=== PATIENT | male | born 1965 | race Caucasian/White ===

== ENCOUNTER 2017-11-25 17:39 | Observation (INO) | payer OTHER, MEDICARE ==
[2017-11-25] MEDS ORDERED: SODIUM CHLORIDE 0.9% 1,000 ML IV STA (18:24)
--- NOTE | 2017-11-25 18:30 | ED ---
General Adult HPI - General Chief complaint: Chest Pain Stated complaint: anxiety, chest pain Time Seen by Provider: 11/25/17 18:04 Source: patient, RN notes reviewed Mode of arrival: ambulatory Limitations: no limitations - History of Present Illness Initial comments: Chief complaint and history of present illness this is a 52-year-old male here with a complaint of mild nausea but no vomiting is associated with sweats. Patient also reports he felt rather hot. He does state that he was trying to learn a lot of information about a new insulin pump which she is having placed also he was in a warm room. He states he thinks he may become overly anxious. Normally when he feels this way's blood sugar is low, it was checked was 172. For this he gave himself one half units of insulin. He has not had anything to eat since then he did take a Tums which helped a slight bit. Patient reports this all lasted about half an hour currently discomfort free. He does report having had epigastric discomfort in the same area on again off again for 1 year but is never been diaphoretic before. There is no radiation of pain in the arm neck or back. - Related Data Home Medications Medication Instructions Recorded Confirmed Aspirin EC [Ecotrin Low Dose] 81 mg PO DAILY 11/25/17 11/25/17 Cetirizine HCl [Zyrtec] 10 mg PO DAILY 11/25/17 11/25/17 Enalapril Maleate [Vasotec] 2.5 mg PO DAILY 11/25/17 11/25/17 INSULIN LISPRO (For Pump) [humaLOG 0.01 units SQ-PUMP CONTINUOUS 11/25/17 (For Pump)] Simvastatin [Zocor] 10 mg PO HS 11/25/17 11/25/17 Allergies Allergy/AdvReac Type Severity Reaction Status Date / Time No Known Allergies Allergy Verified 11/25/17 19:12 Review of Systems ROS Statement: Those systems with pertinent positive or pertinent negative responses have been documented in the HPI. Review of systems. At this time no visual acuity changes, he has had bad eyesight and one IV with previous surgeries secondary to diabetes. Denies any neck pain denies shortness of breath currently no chest pain or epigastric pain which occurred approximately 3 hours ago and lasted half an hour. At that time he was diaphoretic with mild nausea but no vomiting. He states he felt better after he went around to the cooler air. He had been in a stuffy room learning about a new insulin pump. He is otherwise denying any abdominal pain at this time no nausea no vomiting no neuro deficits. All systems are reviewed. 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 Also hypertension and hyperlipidemia. Surgeries tonsils and adenoids. Family history mother had breast cancer. Patient denies ALLERGIES. Nonsmoker. Drink alcohol occasionally socially. ROS Other: All systems not noted in ROS Statement are negative. Past Medical History Past Medical History: Chest Pain / Angina, Diabetes Mellitus, Hyperlipidemia, Hypertension History of Any Multi-Drug Resistant Organisms: None Reported Past Surgical History: No Surgical Hx Reported Past Psychological History: No Psychological Hx Reported Smoking Status: Never smoker Past Alcohol Use History: None Reported, Occasional Past Drug Use History: None Reported General Exam - General Exam Comments Initial Comments: General: The patient is awake and alert, in no distress, and does not appear acutely ill. Here because he had discomfort to the epigastric area with diaphoresis that lasted a short while. Vital signs show temperature 98.7 pulse 117 respiratory rate 20 pulse ox 90% room air blood pressure 166/95. Patient reports his heart rate normally high in the low 100s. He states on 2 previous stress tests takes only several seconds to a few minutes to get his heart rate up to the maximum level. Eye: Pupils are equal, round and reactive to light, extra-ocular movements are intact ; there is normal conjunctiva bilaterally. No signs of icterus. Patient states due to diabetes and having had surgeries on 1 eye his vision is poor. But no change lately. Ears, nose, mouth and throat: There are moist mucous membranes and no oral lesions. Neck: The neck is supple, there is no tenderness, no JVD, no anterior cervical lymphadenopathy. Cardiovascular: Tachycardic heart rate, 117.. No murmur, rub or gallop is appreciated. Respiratory: Lungs are clear to auscultation, respirations are non-labored, breath sounds are equal. No wheezes, stridor, rales, or rhonchi. Gastrointestinal: Soft, non-distended, non-tender abdomen without masses or organomegaly noted. There is no rebound or guarding present. No CVA tenderness. Bowel sounds are unremarkable. Back: There is no tenderness to palpation in the midline. Musculoskeletal: Normal ROM, no tenderness, There is no pedal edema. There is no calf tenderness or swelling. Sensation intact. Pulses equal bilaterally 2+. Neurological: CN II-XII intact, There are no obvious motor or sensory deficits. Coordination appears grossly intact. Speech is normal. Skin: Skin is warm and dry and no rashes or lesions are noted. Psychiatric: Cooperative, appropriate mood & affect patient does think he may have had an anxiety attack associated with the warm temperature in the room. Limitations: no limitations Course Vital Signs 11/25/17 11/25/17 11/25/17 17:58 19:06 20:06 Temperature 98.7 F Pulse Rate 117 H 108 H 110 H Respiratory 20 14 16 Rate Blood Pressure 166/95 156/67 145/67 O2 Sat by Pulse 98 100 100 Oximetry EKG Findings - EKG Comments: EKG Findings:: EKG was done and reviewed at 1805 showing sinus tachycardia rate 117. No acute ST elevation no ectopy no ischemic changes. LA interval is 152 QRS [address] Hsieh no old EKG available to compare to. Medical Decision Making - Medical Decision Making Medical decision making; this is a 52-year-old male reports she had some epigastric discomfort with some diaphoresis. He thought he may be having an anxiety attack continues in a warmer room when he went outside he felt better. He was mildly nauseated. The patient was at that time getting a new insulin pump placed and he was learning about it. He checked his sugar was 170. At that time he gave himself 1.5 units. There is no radiation of pain. Labs show white count of 10 hemoglobin 16 hematocrit of 45 amylase lipase normal limits. Potassium 4.6 with a BUN 14 creatinine 0.93 GFR greater than 90. Glucose is 229. D-dimer normal at less than 0.12. CK-MB and troponin normal. Chest x-ray was done AP and lateral view and reviewed by radiologist; his impression is heart and mediastinum are normal. Lungs are clear. Diaphragm is normal. There are chest leads. Bony thorax is intact. Impression normal chest. As read by Dr. Mujica Patient reports she still have mild discomfort in the left chest area left upper quadrant. Patient will have an H. pylori test done. I discussed the case Dr. Garrett on-call hospitalist. Patient admitted to his service. The patient will be taken off his insulin pump and placed on regular insulin to scale. With repeat cardiac enzymes. - Lab Data Result diagrams: 11/25/17 18:35 11/25/17 18:35 Lab Results 11/25/17 11/25/17 11/25/17 Range/Units 18:35 18:35 18:35 WBC 10.1 (3.8-10.6) k/uL RBC 4.43 (4.30-5.90) m/uL Hgb 16.3 (13.0-17.5) gm/dL Hct 46.5 (39.0-53.0) % MCV 105.0 H (80.0-100.0) fL MCH 36.8 H (25.0-35.0) pg MCHC 35.0 (31.0-37.0) g/dL RDW 13.4 (11.5-15.5) % Plt Count 261 (150-450) k/uL Neutrophils % 85 % Lymphocytes % 7 % Monocytes % 5 % Eosinophils % 1 % Basophils % 0 % Neutrophils # 8.6 H (1.3-7.7) k/uL Lymphocytes # 0.7 L (1.0-4.8) k/uL Monocytes # 0.5 (0-1.0) k/uL Eosinophils # 0.1 (0-0.7) k/uL Basophils # 0.0 (0-0.2) k/uL Macrocytosis Slight PT (9.0-12.0) sec INR (<1.2) APTT (22.0-30.0) sec D-Dimer (<0.60) mg/L FEU Sodium 137 (137-145) mmol/L Potassium 4.6 (3.5-5.1) mmol/L Chloride 98 (98-107) mmol/L Carbon Dioxide 22 (22-30) mmol/L Anion Gap 17 mmol/L BUN 14 (9-20) mg/dL Creatinine 0.93 (0.66-1.25) mg/dL Est GFR (CKD-EPI)AfAm >90 (>60 ml/min/1.73 sqM) Est GFR (CKD-EPI)NonAf >90 (>60 ml/min/1.73 sqM) Glucose 229 H (74-99) mg/dL Calcium 9.7 (8.4-10.2) mg/dL Magnesium 1.7 (1.6-2.3) mg/dL Total Bilirubin 0.8 (0.2-1.3) mg/dL AST 49 (17-59) U/L ALT 46 (21-72) U/L Alkaline Phosphatase 70 (38-126) U/L Total Creatine Kinase 75 (55-170) U/L CK-MB (CK-2) 0.4 (0.0-2.4) ng/mL CK-MB (CK-2) Rel Index 0.5 Troponin I <0.012 (0.000-0.034) ng/mL Total Protein 8.0 (6.3-8.2) g/dL Albumin 4.8 (3.5-5.0) g/dL Amylase 110 (30-110) U/L Lipase 26 (23-300) U/L 11/25/17 Range/Units 18:35 WBC (3.8-10.6) k/uL RBC (4.30-5.90) m/uL Hgb (13.0-17.5) gm/dL Hct (39.0-53.0) % MCV (80.0-100.0) fL MCH (25.0-35.0) pg MCHC (31.0-37.0) g/dL RDW (11.5-15.5) % Plt Count (150-450) k/uL Neutrophils % % Lymphocytes % % Monocytes % % Eosinophils % % Basophils % % Neutrophils # (1.3-7.7) k/uL Lymphocytes # (1.0-4.8) k/uL Monocytes # (0-1.0) k/uL Eosinophils # (0-0.7) k/uL Basophils # (0-0.2) k/uL Macrocytosis PT 9.5 (9.0-12.0) sec INR 1.0 (<1.2) APTT 19.8 L (22.0-30.0) sec D-Dimer <0.17 (<0.60) mg/L FEU Sodium (137-145) mmol/L Potassium (3.5-5.1) mmol/L Chloride (98-107) mmol/L Carbon Dioxide (22-30) mmol/L Anion Gap mmol/L BUN (9-20) mg/dL Creatinine (0.66-1.25) mg/dL Est GFR (CKD-EPI)AfAm (>60 ml/min/1.73 sqM) Est GFR (CKD-EPI)NonAf (>60 ml/min/1.73 sqM) Glucose (74-99) mg/dL Calcium (8.4-10.2) mg/dL Magnesium (1.6-2.3) mg/dL Total Bilirubin (0.2-1.3) mg/dL AST (17-59) U/L ALT (21-72) U/L Alkaline Phosphatase (38-126) U/L Total Creatine Kinase (55-170) U/L CK-MB (CK-2) (0.0-2.4) ng/mL CK-MB (CK-2) Rel Index Troponin I (0.000-0.034) ng/mL Total Protein (6.3-8.2) g/dL Albumin (3.5-5.0) g/dL Amylase (30-110) U/L Lipase (23-300) U/L Disposition Clinical Impression: Chest pain Disposition: ADMITTED IP TO THIS HOSP Condition: Fair Instructions: Chest Pain (ED) Is patient prescribed a controlled substance at d/c from ED?: No Referrals: Frankie Wilder MD [Primary Care Provider] - 1-2 days
[2017-11-25 18:49] LABS: Basophils % (A) 0 %; Eosinophils # (A) 0.1 k/uL (0-0.7); Eosinophils % (A) 1 %; HCT 46.5 % (39.0-53.0); HGB 16.3 gm/dL (13.0-17.5); Lymphocytes # (A) 0.7 k/uL (1.0-4.8); Lymphocytes % (A) 7 %; MCH 36.8 pg (25.0-35.0); Macrocytosis Slight; Mean Platelet Volume 6.9; Monocytes # (A) 0.5 k/uL (0-1.0); Monocytes % (A) 5 %; Neutrophils # (A) 8.6 k/uL (1.3-7.7); Neutrophils % (A) 85 %; Platelet Count 261 k/uL (150-450); RBC 4.43 m/uL (4.30-5.90); RDW 13.4 % (11.5-15.5); WBC 10.1 k/uL (3.8-10.6)
[2017-11-25 18:58] LABS: ALT 46 U/L (21-72); AST 49 U/L (17-59); Albumin 4.8 g/dL (3.5-5.0); Alkaline Phosphatase 70 U/L (38-126); Amylase 110 U/L (30-110); Anion Gap 17 mmol/L; Blood Urea Nitrogen 14 mg/dL (9-20); Calcium 9.7 mg/dL (8.4-10.2); Carbon Dioxide 22 mmol/L (22-30); Chloride 98 mmol/L (98-107); Glucose 229 mg/dL (74-99); Lipase 26 U/L (23-300); Magnesium 1.7 mg/dL (1.6-2.3); Potassium 4.6 mmol/L (3.5-5.1); Sodium 137 mmol/L (137-145); Total Bilirubin 0.8 mg/dL (0.2-1.3)
[2017-11-25 19:04] LABS: Creatine Kinase 75 U/L (55-170)
[2017-11-25 19:09] LABS: D-Dimer <0.17 mg/L FEU (<0.60); Prothrombin Time 9.5 sec (9.0-12.0)
[2017-11-25 19:17] LABS: Creatine Kinase MB 0.4 ng/mL (0.0-2.4); Troponin I <0.012 ng/mL (0.000-0.034)
[2017-11-25 19:30] LABS: Partial Thromboplastin Time 19.8 sec (22.0-30.0)
--- NOTE | 2017-11-25 19:50 | XR ---
EXAMINATION TYPE: XR chest 2V DATE OF EXAM: 11/25/2017 COMPARISON: NONE HISTORY: Chest pain TECHNIQUE: Frontal and lateral views of the chest are obtained. FINDINGS: Heart and mediastinum are normal. Lungs are clear. Diaphragm is normal. There are chest le ads. Bony thorax is intact. IMPRESSION: Normal chest.
[2017-11-25 20:27] VITALS: RESP 16
[2017-11-25] MEDS ORDERED: NALOXONE 0.4 MG/ML 1 ML VIAL IV PRN (21:14)
[2017-11-25] MEDS ORDERED: ACETAMINOPHEN TAB 325 MG TAB PO PRN (21:14)
[2017-11-25] MEDS ORDERED: ONDANSETRON 4 MG/2 ML VIAL IVP PRN (21:14)
[2017-11-25] MEDS: SODIUM CHLORIDE 0.9% 1,000 ML IV SCH (21:27)
[2017-11-25] MEDS ORDERED: ASPIRIN 325 MG TAB PO STA (22:44)
[2017-11-25] MEDS ORDERED: INSULIN LISPRO (For Pump) 100 UNIT/ML VIAL SQ-PUMP SCH (22:45)
[2017-11-25 22:49] LABS: Glucose,Whole Blood 227 mg/dL (75-99)
[2017-11-25] MEDS: INSULIN ASPART 100 UNIT/ML 1 ML 10 ML VIAL SQ SCH (22:54)
[2017-11-25] MEDS ORDERED: LISINOPRIL 5 MG TAB PO SCH (23:22)
[2017-11-25] MEDS ORDERED: ATORVASTATIN 10 MG TAB PO SCH (23:30)
[2017-11-25] MEDS ORDERED: LORATADINE 10 MG TAB PO SCH (23:30)
[2017-11-26 00:37] LABS: Creatine Kinase 75 U/L (55-170)
[2017-11-26] MEDS ORDERED: MAG HYDROX/AL HYDROX/SIMETH 30 ML, HYOSCYAMINE ELIXIR 10 ML, CIMETIDINE HCL 300 MG, LID... PO ONE ×4 (00:44)
[2017-11-26] MEDS ORDERED: ZOLPIDEM 5 MG TAB PO PRN (00:46)
--- NOTE | 2017-11-26 00:49 | P.HPIM ---
History of Present Illness H&P Date: 11/26/17 Chief Complaint: Epigastric pain The patient is a 52-year-old male with a past with a history of type 1 diabetes with a history of peripheral neuropathy and diabetic retinopathy who is currently on insulin pump, the patient is apparently followed by Dr. Esteban endocrinology And reports that his sugars are usually pretty stable over the last known A1c at 6.5 approximately. Apparently the patient had episode of epigastric discomfort described as mild to moderate with some associated nausea diaphoresis and shortness of breath with associated symptoms of bloating, belching and heartburn. The patient reports that his symptoms began at rest while he was in class receiving instruction about his new insulin pump, the patient thinks that he may have become anxious and had initially reported some chest discomfort in the ER but is currently denying any such symptoms. Monitor symptoms of diaphoresis started the patient initially thought that he was having a hypoglycemic episode however when his blood sugar was checked and was approximately 172 he subsequently gave himself supplemental insulin, the patient reported his symptoms lasted approximately half an hour. He had also reported intermittent episodes of epigastric discomfort previously however this time around the diaphoresis was new. The patient reports to having a stress test approximately 2 years ago which was reportedly normal In the ER he had a EKG showing sinus tachycardia with a rate of 117, with no evidence of disc acute ischemic changes. Chest x-ray was normal, his cardiac markers are also normal. He was recommended for admission for possible chest pain rule out ACS Review of Systems All other 12 point review of systems negative except for HPI Past Medical History Past Medical History: Chest Pain / Angina, Diabetes Mellitus, Hyperlipidemia, Hypertension Additional Past Medical History / Comment(s): insulin pump, "indigestion", arthritis, back pain, in past when blood sugar dipped in the 30's he had seizure , past detatched retina lt eye(sx) History of Any Multi-Drug Resistant Organisms: None Reported Past Surgical History: Tonsillectomy Additional Past Surgical History / Comment(s): reattatchment of retina lt eye stated has a titanium clip (Almost blind lt eye). multiple laser sx rt eye. wears 3x magnifiers to read. Past Anesthesia/Blood Transfusion Reactions: Motion Sickness, Postoperative Nausea & Vomiting (PONV) Smoking Status: Never smoker - Past Family History Mother Family Medical History: Cancer Additional Family Medical History / Comment(s): breast cancer. had breast implants that leaked causing her other health issues-since Father Additional Family Medical History / Comment(s): alive at age 80 not sure what health problems he has Medications and Allergies Home Medications Medication Instructions Recorded Confirmed Type Aspirin EC [Ecotrin Low Dose] 81 mg PO HS 11/25/17 11/25/17 History Cetirizine HCl [Zyrtec] 10 mg PO HS 11/25/17 11/25/17 History Enalapril Maleate [Vasotec] 2.5 mg PO HS 11/25/17 11/25/17 History INSULIN LISPRO (For Pump) [humaLOG 0.01 units SQ-PUMP CONTINUOUS 11/25/17 History (For Pump)] Simvastatin [Zocor] 10 mg PO HS 11/25/17 11/25/17 History Allergies Allergy/AdvReac Type Severity Reaction Status Date / Time No Known Allergies Allergy Verified 11/25/17 22:10 Physical Exam Vitals: Vital Signs Temp Pulse Pulse Resp BP BP Pulse Ox 11/25/17 22:24 16 11/25/17 21:53 98.9 F 101 H 16 149/79 97 11/25/17 21:00 99.2 F 11/25/17 20:06 110 H 16 145/67 100 11/25/17 19:06 108 H 14 156/67 100 11/25/17 17:58 98.7 F 117 H 20 166/95 98 Intake and Output 11/25/17 11/25/17 11/26/17 14:59 22:59 06:59 Other: Voiding Method Toilet Weight 87.09 kg Constitutional: No acute distress, conversant, pleasant Eyes: Anicteric sclerae, moist conjunctiva, no lid-lag, PERRLA ENMT: NC/AT,Oropharynx clear, no erythema, exudates Neck:Supple, FROM, no masses, or JVD, No carotid bruits; No thyromegaly Lungs: Clear to auscultation, Clear to percussion, Normal respiratory effort, no accessory muscle use Cardiovascular: Heart regular in rate and rhythm, No murmurs, gallops, or rubs no peripheral edema Abdominal: Soft Nontender, nom distended, no guarding, no rebound or rigidity, Normoactive bowel sounds No hepatomegaly, No splenomegaly, No palpable mass No abdominal wall hernia noted Skin: Normal temperature, tone, texture, turgor, No induration No subcutaneous nodules, No rash, lesions, No ulcers Extremities:No digital cyanosis No clubbing, Pedal pulses intact and symmetrical Radial pulses intact and symmetrical Normal gait and station, No calf tenderness Psychiatric: Alert and oriented to person, place and time, Appropriate affect Intact judgement Neuro: Muscles Strength 5/5 in all 4 extremities, Sensation to light touch grossly present throughout, Cranial nerves II-XII grossly intact. No focal sensory deficits Results CBC & Chem 7: 11/25/17 18:35 11/25/17 18:35 Labs: Abnormal Lab Results - Last 24 Hours (Table) 11/25/17 11/25/17 11/25/17 Range/Units 18:35 18:35 18:35 MCV 105.0 H (80.0-100.0) fL MCH 36.8 H (25.0-35.0) pg Neutrophils # 8.6 H (1.3-7.7) k/uL Lymphocytes # 0.7 L (1.0-4.8) k/uL APTT 19.8 L (22.0-30.0) sec Glucose 229 H (74-99) mg/dL POC Glucose (mg/dL) (75-99) mg/dL 11/25/17 Range/Units 22:45 MCV (80.0-100.0) fL MCH (25.0-35.0) pg Neutrophils # (1.3-7.7) k/uL Lymphocytes # (1.0-4.8) k/uL APTT (22.0-30.0) sec Glucose (74-99) mg/dL POC Glucose (mg/dL) 227 H (75-99) mg/dL Thrombosis Risk Factor Assmnt - Choose All That Apply Any of the Below Risk Factors Present?: Yes Each Factor Represents 1 point: Age 41-60 years, Obesity (BMI >25) Other Risk Factors: No Other congenital or acquired thrombophilia - If yes, enter type in comment: No Thrombosis Risk Factor Assessment Total Risk Factor Score: 2 Thrombosis Risk Factor Assessment Level: Low Risk Assessment and Plan Assessment: code Status Full code (1) Atypical chest pain Current Visit: Yes Status: Acute Code(s): R07.89 - OTHER CHEST PAIN SNOMED Code(s): 248325768 (2) Epigastric pain Current Visit: Yes Status: Acute Code(s): R10.13 - EPIGASTRIC PAIN SNOMED Code(s): 74671555 (3) GERD (gastroesophageal reflux disease) Current Visit: Yes Status: Acute Code(s): K21.9 - GASTRO-ESOPHAGEAL REFLUX DISEASE WITHOUT ESOPHAGITIS SNOMED Code(s): 105138673 (4) Type 1 diabetes mellitus on insulin therapy Current Visit: Yes Status: Acute Code(s): E10.9 - TYPE 1 DIABETES MELLITUS WITHOUT COMPLICATIONS SNOMED Code(s): 75129800 Plan: The patient is placed on observation anticipate a less than 2 midnight stay after presenting with atypical chest pain we'll rule out ACS his initial EKG and cardiac enzymes are negative for any suggestion of any acute ischemia, we' ll continue to cycle his troponins and initiate antiplatelet therapy with aspirin and requested cardiac consultation. Will also order echocardiogram, per the patient's history appears that his symptoms might be GI related to underlying GERD and I will give him a GI cocktail and initiate PPI therapy. The patient is allowed to use his insulin pump continue with Accu-Cheks, A1c pending The patient is placed on DVT prophylaxis with Lovenox and SCDs. We'll continue to follow his clinical course
[2017-11-26 00:51] LABS: Creatine Kinase MB 0.5 ng/mL (0.0-2.4); Troponin I <0.012 ng/mL (0.000-0.034)
[2017-11-26 03:48] LABS: Glucose,Whole Blood 134 mg/dL (75-99)
[2017-11-26] MEDS: INSULIN ASPART 100 UNIT/ML 1 ML 10 ML VIAL SQ SCH (03:55)
[2017-11-26 06:42] LABS: Cholesterol 163 mg/dL (<200); HDL Cholesterol 76 mg/dL (40-60); LDL Cholesterol,Calculated 71 mg/dL (0-99); Triglycerides 80 mg/dL (<150)
[2017-11-26 06:45] LABS: Creatine Kinase 89 U/L (55-170)
[2017-11-26 06:58] LABS: Creatine Kinase MB 0.7 ng/mL (0.0-2.4); Troponin I <0.012 ng/mL (0.000-0.034)
[2017-11-26] MEDS ORDERED: ASPIRIN 325 MG TAB PO SCH (09:00)
[2017-11-26] MEDS ORDERED: ENOXAPARIN 40 MG/0.4 ML SYRINGE SQ SCH (09:00)
[2017-11-26] MEDS ORDERED: PANTOPRAZOLE 40 MG/10 ML VIAL IV SCH (09:00)
[2017-11-26 09:21] LABS: Glucose,Whole Blood 147 mg/dL (75-99)
--- NOTE | 2017-11-26 09:52 | P.CRDCN ---
History of Present Illness History of present illness: Mr. Ruiz is a pleasant 52-year-old male past medical history significant for type 1 diabetes mellitus, dyslipidemia and hypertension. He denies history of coronary artery disease. He states he has seen Dr. Rodriguez in the past and had a stress test a couple of times but it is been over 5 years. He states yesterday he was at a diabetes education class for a new insulin pump he received last week and he became acutely diaphoretic and nauseated. He thought the symptoms were similar to that of the low blood sugar when his blood sugar was actually 172 at this time. He describes nonspecific epigastric burning intermittently over the previous year. His symptoms of epigastric discomfort have never been associated with nausea or diaphoresis likewise yesterday. He has attributed this mostly to indigestion. He denies associated shortness of breath, dizziness, palpitations or vomiting. His symptoms have subsided. He took Tums and received only mild relief of his epigastric discomfort. On arrival his blood pressure was elevated 166/95 with heart rate of 117. EKG reveals sinus mechanism with no acute ST or T-wave abnormalities. Chest x-ray is negative for an acute cardiopulmonary process. Laboratory data reviewed, hemoglobin 16.3, platelets 261, d-dimer less than 0.17 , sodium 137, potassium 4.6, creatinine 0.93, magnesium 1.7, cardiac enzymes negative 3, HDL 76, LDL 71, triglyceride 80 and total cholesterol 163. Current cardiac medications include aspirin 81 mg daily, simvastatin 10 mg daily and enalapril 2.5 mg daily. He also is on an insulin infusion pump and Zyrtec. Review of Systems At the time of my exam: CONSTITUTIONAL: Denies fever. Denies chills. EYES: Denies blurred vision. Denies vision changes. Denies eye pain. EARS, NOSE, MOUTH & THROAT: Denies headache. Denies sore throat. Denies ear pain. CARDIOVASCULAR: Denies chest pain. Denies shortness of breath. Denies orthopnea. Denies PND. Denies palpitations. RESPIRATORY: Denies cough. GASTROINTESTINAL: Denies abdominal pain. Denies diarrhea. Denies constipation. Denies nausea. Denies vomiting. MUSCULOSKELETAL: Denies myalgias. INTEGUMENTARY: Denies pruitis. Denies rash. NEUROLOGIC: Denies numbness. Denies tingling. Denies weakness. PSYCHIATRIC: Denies anxiety. Denies depression. ENDOCRINE: Denies fatigue. Denies weight change. Denies polydipsia. Denies polyurina. GENITOURINARY: Denies burning, hematuria or urgency with micturation. HEMATOLOGIC: Denies history of anemia. Denies bleeding. Past Medical History Past Medical History: Chest Pain / Angina, Diabetes Mellitus, Hyperlipidemia, Hypertension Additional Past Medical History / Comment(s): insulin pump, "indigestion", arthritis, back pain, in past when blood sugar dipped in the 30's he had seizure , past detatched retina lt eye(sx) History of Any Multi-Drug Resistant Organisms: None Reported Past Surgical History: Tonsillectomy Additional Past Surgical History / Comment(s): reattatchment of retina lt eye stated has a titanium clip (Almost blind lt eye). multiple laser sx rt eye. wears 3x magnifiers to read. Past Anesthesia/Blood Transfusion Reactions: Motion Sickness, Postoperative Nausea & Vomiting (PONV) Smoking Status: Never smoker - Past Family History Mother Family Medical History: Cancer Additional Family Medical History / Comment(s): breast cancer. had breast implants that leaked causing her other health issues-since Father Additional Family Medical History / Comment(s): alive at age 80 not sure what health problems he has Medications and Allergies Home Medications Medication Instructions Recorded Confirmed Type Aspirin EC [Ecotrin Low Dose] 81 mg PO HS 11/25/17 11/25/17 History Cetirizine HCl [Zyrtec] 10 mg PO HS 11/25/17 11/25/17 History Enalapril Maleate [Vasotec] 2.5 mg PO HS 11/25/17 11/25/17 History INSULIN LISPRO (For Pump) [humaLOG 0.01 units SQ-PUMP CONTINUOUS 11/25/17 History (For Pump)] Simvastatin [Zocor] 10 mg PO HS 11/25/17 11/25/17 History Allergies Allergy/AdvReac Type Severity Reaction Status Date / Time No Known Allergies Allergy Verified 11/25/17 22:10 Physical Exam Vitals: Vital Signs Temp Pulse Pulse Resp BP BP Pulse Ox 11/26/17 08:00 98.6 F 88 16 139/70 99 11/26/17 04:00 16 11/26/17 03:39 98.1 F 72 16 123/60 11/26/17 00:43 97.9 F 78 16 132/68 97 11/25/17 22:24 16 11/25/17 21:53 98.9 F 101 H 16 149/79 97 11/25/17 21:00 99.2 F 11/25/17 20:06 110 H 16 145/67 100 11/25/17 19:06 108 H 14 156/67 100 11/25/17 17:58 98.7 F 117 H 20 166/95 98 Intake and Output 11/25/17 11/26/17 11/26/17 22:59 06:59 14:59 Intake Total 400 Balance 400 Intake: IV 400 Sodium Chloride 0.9% 1, 400 000 ml @ 80 mls/hr IV . [id number] [facility] Rx#:[id number] Other: Voiding Method Toilet Toilet # Voids 2 Weight 87.09 kg Blood pressure 139/70 heart rate 88 afebrile maintaining oxygen saturation on room air GENERAL: This is a 52-year-old male in no apparent distress at the time of my examination. HEENT: Head is atraumatic, normocephalic. Pupils are equal, round. Sclerae anicteric. Conjunctivae are clear. Mucous membranes of the mouth are moist. Neck is supple. There is no jugular venous distention. No carotid bruit is heard. LUNGS: Clear to auscultation no wheezes, rales or rhonchi. No chest wall tenderness is noted on palpation or with deep breathing. HEART: Regular rate and rhythm without murmurs, rubs or gallops. S1 and S2 heard. ABDOMEN: Soft, nontender. Bowel sounds are heard. No organomegaly noted. EXTREMITIES: No evidence of peripheral edema and no calf tenderness noted. VASCULAR: Radial and dorsalis pedis pulses palpated, no evidence of clubbing. NEUROLOGIC: Patient is awake, alert and oriented x3. Results 11/25/17 18:35 11/25/17 18:35 Cardiac Enzymes 11/25/17 11/25/17 11/25/17 Range/Units 18:35 18:35 23:47 AST 49 (17-59) U/L CK-MB (CK-2) 0.4 0.5 (0.0-2.4) ng/mL Troponin I <0.012 <0.012 (0.000-0.034) ng/mL 11/26/17 Range/Units 06:05 AST (17-59) U/L CK-MB (CK-2) 0.7 (0.0-2.4) ng/mL Troponin I <0.012 (0.000-0.034) ng/mL Coagulation 11/25/17 Range/Units 18:35 PT 9.5 (9.0-12.0) sec APTT 19.8 L (22.0-30.0) sec Lipids 11/26/17 Range/Units 06:05 Triglycerides 80 (<150) mg/dL Cholesterol 163 (<200) mg/dL HDL Cholesterol 76 H (40-60) mg/dL CBC 11/25/17 Range/Units 18:35 WBC 10.1 (3.8-10.6) k/uL RBC 4.43 (4.30-5.90) m/uL Hgb 16.3 (13.0-17.5) gm/dL Hct 46.5 (39.0-53.0) % Plt Count 261 (150-450) k/uL Comprehensive Metabolic Panel 11/25/17 Range/Units 18:35 Sodium 137 (137-145) mmol/L Potassium 4.6 (3.5-5.1) mmol/L Chloride 98 (98-107) mmol/L Carbon Dioxide 22 (22-30) mmol/L BUN 14 (9-20) mg/dL Creatinine 0.93 (0.66-1.25) mg/dL Glucose 229 H (74-99) mg/dL Calcium 9.7 (8.4-10.2) mg/dL AST 49 (17-59) U/L ALT 46 (21-72) U/L Alkaline Phosphatase 70 (38-126) U/L Total Protein 8.0 (6.3-8.2) g/dL Albumin 4.8 (3.5-5.0) g/dL Current Medications Generic Name Dose Route Start Last Admin Trade Name Freq PRN Reason Stop Dose Admin Acetaminophen 650 mg 11/25/17 21:14 Tylenol Tab PO Q6HR PRN Mild Pain or Fever > 100.5 Aspirin 325 mg 11/26/17 09:00 Aspirin PO DAILY MADDIE Atorvastatin Calcium 5 mg 11/25/17 23:30 11/25/17 23:44 Lipitor PO 5 mg HS MADDIE Administration Enoxaparin Sodium 40 mg 11/26/17 09:00 Lovenox SQ DAILY MADDIE Sodium Chloride 1,000 mls @ 80 mls/hr 11/25/17 21:15 11/25/17 21:27 Saline 0.9% IV 80 mls/hr .[id number] MADDIE Administration Insulin Human Lispro 0.01 unit 11/25/17 22:45 11/25/17 23:48 Humalog (For Pump) SQ-PUMP Not Given CONTINUOUS MADDIE Lisinopril 5 mg 11/25/17 23:22 11/25/17 23:45 Zestril PO 5 mg HS MADDIE Administration Loratadine 10 mg 11/25/17 23:30 11/25/17 23:46 Claritin PO 10 mg HS MADDIE Administration Naloxone HCl 0.2 mg 11/25/17 21:14 Narcan IV Q2M PRN Opioid Reversal Ondansetron HCl 4 mg 11/25/17 21:14 Zofran IVP Q8HR PRN Nausea And Vomiting Pantoprazole Sodium 40 mg 11/26/17 09:00 Protonix IV DAILY MADDIE Zolpidem Tartrate 5 mg 11/26/17 00:46 Ambien PO HS PRN Insomnia Intake and Output 11/25/17 11/26/17 11/26/17 22:59 06:59 14:59 Intake Total 400 Balance 400 Intake: IV 400 Sodium Chloride 0.9% 1, 400 000 ml @ 80 mls/hr IV . [id number] [facility] Rx#:[id number] Other: Voiding Method Toilet Toilet # Voids 2 Weight 87.09 kg 11/25/17 18:35 11/25/17 18:35 Assessment and Plan Assessment: ASSESSMENT 1. Chest pain, atypical in a diabetic patient. An acute coronary event has been ruled out with no EKG evidence of acute ischemia and normal cardiac enzymes. 2. Diabetes mellitus 3. Dyslipidemia 4. Hypertension PLAN Obtain 2-D echocardiogram and Doppler study to assess cardiac structure and function. Perform stress echocardiogram to assess for stress-induced cardiac ischemia. If stress test is normal he is stable from a cardiac perspective. Symptoms may be related to ongoing gastroesophageal reflux disease, consider PPI if no cardiac etiology. Thank you kindly for this consultation. Nurse Practitioner note has been reviewed, I agree with a documented findings and plan of care. Patient was seen and examined.
[2017-11-26] MEDS ORDERED: INSPUCOR MISCELLANE PRN (11:06)
[2017-11-26] MEDS ORDERED: INSULIN ASPART 100 UNIT/ML 1 ML 10 ML VIAL SQ PRN (11:06)
[2017-11-26] MEDS ORDERED: INSULIN PUMP ACTIVE INSULIN 1 EACH MISC MISCELLANE PRN (11:06)
[2017-11-26] MEDS ORDERED: INSULIN PUMP TARGET GLUCOSE 1 EACH MISC MISCELLANE PRN (11:06)
[2017-11-26] MEDS ORDERED: INSULIN PUMP BASAL RATES 1 EACH MISC MISCELLANE PRN (11:06)
[2017-11-26 11:55] VITALS: BP 153/68; PULSE 118; TEMP 97.7
--- NOTE | 2017-11-26 12:01 | ECHOF ---
Referral Reason:chest pain MEASUREMENTS -------- HEIGHT: 170.2 cm WEIGHT: 87.1 kg BP: 123/60 IVSd: 1.0 cm (0.6 - 1.1) LVIDd: 4.9 cm (3.9 - 5.3) LVPWd: 0.9 cm (0.6 - 1.1) IVSs: 1.2 cm LVIDs: 3.5 cm LVPWs: 1.3 cm Ao Diam: 2.6 cm (2.0 - 3.7) AV Cusp: 2.1 cm (1.5 - 2.6) LA Diam: 3.3 cm (2.7 - 3.8) MV EXCURSION: 16.703 mm (> 18.000) MV EF SLOPE: 59 mm/s (70 - 150) EPSS: 1.0 cm MV E Cesar: 0.95 m/s MV DecT: 149 ms MV A Cesar: 1.05 m/s MV E/A Ratio: 0.90 RAP: 5.00 mmHg RVSP: 8.40 mmHg FINDINGS -------- Sinus rhythm. This was a technically difficult study with suboptimal views. The left ventricular size is normal. Left ventricular wall thickness is normal. Overall left vent ricular systolic function is low-normal with, an EF between 50 - 55 %. The right ventricle is normal in size and function. The left atrium is normal in size. The right atrium is normal in size. Lumason used The aortic valve is trileaflet, and appears structurally normal. No aortic stenosis or regurgitation. There is trace mitral regurgitation. Trace tricuspid regurgitation present. The right ventricular systolic pressure, as measured by Dopp ler, is 8.40mmHg. Pulmonic valve appears structurally normal. The aortic root size is normal. The pericardium is normal. CONCLUSIONS -------- 1. Sinus rhythm. 2. This was a technically difficult study with suboptimal views. 3. The left ventricular size is normal. 4. Left ventricular wall thickness is normal. 5. Overall left ventricular systolic function is low-normal with, an EF between 50 - 55 %. 6. The right ventricle is normal in size and function. 7. The left atrium is normal in size. 8. The right atrium is normal in size. 9. Lumason used 10. The aortic valve is trileaflet, and appears structurally normal. No aortic stenosis or regurgitat ion. 11. There is trace mitral regurgitation. 12. Trace tricuspid regurgitation present. 13. The right ventricular systolic pressure, as measured by Doppler, is 8.40mmHg. 14. Pulmonic valve appears structurally normal. 15. The aortic root size is normal. 16. The pericardium is normal. [employer]ER: Viji Christianson RDCS
[2017-11-26] MEDS ORDERED: INSULIN PUMP MEAL BOLUS 1 UNIT MISC MISCELLANE SCH (12:30)
[2017-11-26] MEDS: SODIUM CHLORIDE 0.9% 1,000 ML IV SCH (12:43)
--- NOTE | 2017-11-26 13:41 | P.STRESS ---
- Stress Test Note Stress Test Results/Findings: Exam Performed: stress echo exercise with con Exam Date: 11/26/17 Reason for Exam: cp Height: 5 ft 7 in Weight: 87.09 kg Protocol: Stress Echo Stage: II Duration of Exercise: 6.00 Resting Heart Rate: 110 Resting Blood Pressure: 127/57 Maximum Achieved Heart Rate: 149 Maximum Achieved Blood Pressure: 153/65 85% PMHR: 89 100% PMHR: 168 METS: 7.3 Technologist Comment: Stress Test Results/Findings: This is a 52-year-old gentleman with history of diabetes who is admitted to the hospital with symptoms of flushing and atypical chest pain.. New Stress data: Baseline EKG showed sinus rhythm with normal ID interval and QRS duration. The blood pressure at rest is 127/57 with pulse rate of 110. Patient walked on the Casey protocol for 6 minutes achieving a maximal heart rate of 149 with blood pressure of 151/62. EKGs taken during and after the exercise did not reveal any significant changes from the baseline. Patient did not experience any chest pain. Echo data: Baseline echo images were obtained with contrast. This showed near normal LV function without any segmental wall motion defects. Stress echo images showed augmentation of wall motion and thickening in all the segments. Final impression #1. Negative stress test #2 Below average exercise capacity # 3. Negative stress echo.
[2017-11-26 13:49] LABS: Hemoglobin A1C 6.6 % (4.0-6.0)
[2017-11-26] MEDS ORDERED: ATORVASTATIN 10 MG TAB PO SCH (21:00)
[2017-11-26] MEDS ORDERED: LISINOPRIL 5 MG TAB PO SCH (21:00)
[2017-11-26] MEDS ORDERED: LORATADINE 10 MG TAB PO SCH (21:00)
--- NOTE | 2017-12-01 10:41 | ECHOS ---
Stress Test Results/Findings: Exam Performed: stress echo exercise with con Exam Date: 11/26/17 Reason for Exam: cp Height: 5 ft 7 in Weight: 87.09 kg Protocol: Stress Echo Stage: II Duration of Exercise: 6.00 Resting Heart Rate: 110 Resting Blood Pressure: 127/57 Maximum Achieved Heart Rate: 149 Maximum Achieved Blood Pressure: 153/65 85% PMHR: 89 100% PMHR: 168 METS: 7.3 Technologist Comment: Stress Test Results/Findings: This is a 52-year-old gentleman with history of diabetes who is admitted to the hospital with symptoms of flushing and atypical chest pain.. New Stress data: Baseline EKG showed sinus rhythm with normal IL interval and QRS duration. The blood pressure at rest is 127/57 with pulse rate of 110. Patient walked on the Casey protocol for 6 minutes achieving a maximal heart rate of 149 with blood pressure of 151/62. EKGs taken during and after the exercise did not reveal any significant changes from the baseline. Patient did not experience any chest pain. Echo data: Baseline echo images were obtained with contrast. This showed near normal LV function without any segmental wall motion defects. Stress echo images showed augmentation of wall motion and thickening in all the segments. Final impression #1. Negative stress test #2 Below average exercise capacity # 3. Negative stress echo. ANNMARIED
== END 2017-11-26 15:28 | disposition home or self-care (01) ==
LOC: EC 17:39 → 3OBS 21:17
PROVIDERS: ADMIT Family Medicine; ATTEND Family Medicine
DX: R07.89 Other chest pain (principal); E10.42 Type 1 diabetes mellitus with diabetic polyneuropathy; E10.319 Type 1 diabetes mellitus with unspecified diabetic retinopathy without macular edema; R10.13 Epigastric pain; K21.9 Gastro-esophageal reflux disease without esophagitis; R61 Generalized hyperhidrosis; R11.0 Nausea; E78.5 Hyperlipidemia, unspecified; I10 Essential (primary) hypertension; Z96.41 Presence of insulin pump (external) (internal); Z79.82 Long term (current) use of aspirin; Z79.899 Other long term (current) drug therapy; Z79.4 Long term (current) use of insulin; H54.62 Unqualified visual loss, left eye, normal vision right eye; Z80.3 Family history of malignant neoplasm of breast
CPT/HCPCS: 93005 ×2; 96374; 96361; 99285; 36415; 93306; 93351; 85379; 80061; 80053; 82150; 82550 ×2; 82553 ×2; 83690; 83735; 84484 ×2; 85025; 85610; 85730; 86677; 83036; 71046; G0378 ×2; C9113; Q9950

== ENCOUNTER → 2019-06-20 | Outpatient (CLI) | payer OTHER, MEDICARE ==
--- NOTE | 2019-06-20 11:10 | USB ---
Reason for exam: clinical finding. Indicated problem(s): palpable abnormality and lump or thickening in the left breast. Physical Findings: Nurse Summary: 2.5cm nipple pain (nurse dw). US Breast LT Left complete breast ultrasound includes all four quadrants, the retroareolar region and axilla. Finding demonstrates a 3.1 x 2.4 x 3.4cm oval, cystic, mixed lesion at the posterior nipple at pain and palpable, avascular, site of prior trauma, likely hematoma. 3 month follow up left ultrasound recommended to ensure smaller size. These results were verbally communicated with the patient and result sheet given to the patient on 06/20/19. ASSESSMENT: Probably benign, BI-RAD 3 RECOMMENDATION: Ultrasound of the left breast in 3 months.
== END | disposition home or self-care (01) ==
LOC: RADUSWWP 10:08
PROVIDERS: ATTEND Family Medicine
DX: N63.23 Unspecified lump in the left breast, lower outer quadrant (principal)

== ENCOUNTER 2019-06-29 08:39 | Day surgery (SDC) | payer MEDICARE, OTHER ==
[2019-06-27 15:01] VITALS: BMI 29.7
[~2019-06-29 08:39] MED LIST: LACTATED RINGERS 1,000 ML IV SCH
[2019-06-29] MEDS ORDERED: LIDOCAINE 1% 20 ML VIAL (10MG/ML) FOR IV START INTRADERMA ONE (09:25)
[2019-06-29 09:36] VITALS: RESP 16; TEMP 97.7
[2019-06-29 09:39] LABS: Glucose,Whole Blood 190 mg/dL (75-99)
[2019-06-29] MEDS ORDERED: PROPOFOL 10 MG/ML 20 ML VIAL IV ONE (09:50)
[2019-06-29] MEDS ORDERED: LIDOCAINE 1% INJ 10MG/ML (20 ML MDV) ONE (09:50)
--- NOTE | 2019-06-29 10:17 | P.PCN ---
Date of Procedure: 06/29/19 Description of Procedure: BRIEF HISTORY: Patient is a 53-year-old male who presents for EGD for evaluation of GERD. Patient reports symptoms of epigastric abdominal pain, bloating and distention. Previously tried on Protonix therapy with some improvement however he felt that eventually symptoms relapsed. PROCEDURE PERFORMED: Esophagogastroduodenoscopy with biopsy . PREOPERATIVE DIAGNOSIS: GERD. ESTIMATED BLOOD LOSS: Minimal. IV sedation per anesthesia. PROCEDURE: After informed consent was obtained, the patient was brought into the endoscopy unit. IV sedation was administered by Anesthesia under continuous monitoring. Initially the Olympus GIF-190 video endoscope was inserted into the mouth. Esophagus intubated without any difficulty. It was gradually advanced into the stomach and duodenum and carefully examined. The bulb and the second part of the duodenum appeared normal, with biopsies taken to rule out celiac sprue . The scope at this time was withdrawn to the stomach, adequately insufflated with air, and upon careful examination, mucosa of the antrum, body, cardia and the fundus appeared normal, except for some mild scattered erythema in the antrum and body suggestive of mild gastritis with biopsies taken of the antrum body to rule out Helicobacter pylori . The scope was then withdrawn into the esophagus. The GE junction was located at 39 cm from the incisors, and biopsied to rule out reflux esophagitis. The esophagus appeared normal. There were no erosions or ulcerations seen and the patient tolerated the procedure well. IMPRESSION: 1. Gastritis antrum body, biopsied. 2. Biopsies of the duodenum and GE junction. RECOMMENDATIONS: The findings of this examination were discussed with the patient and his . Okay to resume diet. Okay to resume medications. We'll start the patient on a trial of omeprazole twice daily. Discussed low fiber, low lactose diet for symptoms of bloating and distention.
[2019-06-29 10:34] VITALS: BP 143/80
[2019-06-29 10:48] VITALS: PULSE 100
== END 2019-06-29 11:01 | disposition home or self-care (01) ==
LOC: ORWHC2ENDO 08:39
PROVIDERS: ATTEND Internal Medicine
DX: K21.9 Gastro-esophageal reflux disease without esophagitis (principal); K29.50 Unspecified chronic gastritis without bleeding; I10 Essential (primary) hypertension; E78.5 Hyperlipidemia, unspecified; E11.9 Type 2 diabetes mellitus without complications; H33.20 Serous retinal detachment, unspecified eye; Z87.891 Personal history of nicotine dependence; Z80.3 Family history of malignant neoplasm of breast; Z90.89 Acquired absence of other organs; Z96.41 Presence of insulin pump (external) (internal); Z79.899 Other long term (current) drug therapy
CPT/HCPCS: 88305; 88313; 43239; J2001; J2704

== ENCOUNTER → 2020-10-18 | Outpatient (CLI) | payer OTHER ==
--- NOTE | 2020-10-21 09:06 | USB ---
Reason for exam: clinical finding. History: Family history of breast cancer in mother at age 55. Indicated problem(s): lump or thickening and pain in the left breast. Physical Findings: Nurse Summary: lump growing over past 3 years, palpable (nurse db). US Breast LT Technologist: Ashleigh Ozuna Left complete breast ultrasound includes all four quadrants, the retroareolar region and axilla. Finding demonstrates a 3.7 x 3.5 x 3.4cm circular, cystic lesion with internal component at the nipple. This may have a wall nodule, biopsy nodule recommended. Measured 3.1 x 2.1 x 3.4cm on 06/20/19. These results were verbally communicated with the patient and result sheet given to the patient on 10/18/20. ASSESSMENT: Suspicious, BI-RAD 4 RECOMMENDATION: Ultrasound core biopsy of the left breast. (possible nodule in cyst) Called Dr. Coombs's office with mammographic findings and has scheduled an appointment for the patient for 12/11/20 at 4:[address] Monsivais. Biopsy scheduled for 11/14/20 at 10:30. PRELIMINARY REPORT CALLED AND FAXED TO DR. MONSIVAIS ON 10/21/20.
== END | disposition home or self-care (01) ==
LOC: RADUSWWP 14:41
PROVIDERS: ATTEND Family Medicine
DX: N60.02 Solitary cyst of left breast (principal); Z80.3 Family history of malignant neoplasm of breast

== ENCOUNTER → 2020-11-14 | Day surgery (SDC) | payer OTHER ==
[2020-11-14 09:47] VITALS: BP 161/91; PULSE 99; RESP 16; TEMP 99.1
--- NOTE | 2020-11-14 11:36 | USB ---
Exam: Ultrasound discontinued left breast biopsy CLINICAL HISTORY: 55-year-old with 3 year history of enlarging left breast lump. The procedure and risks were explained to the patient. A anechoic cystic structure measuring 3.9 x 3. 6 cm is seen in the left retroareolar region at the site of palpable lump. This most likely represent s a seroma or evolving hematoma. Nodularity seen on prior exam most likely represents adjacent wall t issue. The patient has a surgical consult the findings were discussed with the patient in detail. The patient was made aware that reaccumulation of fluid after aspiration is considered a likely possibil ity due to large size of the fluid collection and longevity of this fluid collection (2-3 years). The patient opted to cancel the biopsy and have a surgical consult with possible excision of the cavity. IMPRESSION: 1. 3.6 x 3.9 cm cystic structure in the left retroareolar region at the site of palpable lump. This m ay represent a seroma or evolving hematoma. The patient did not want the aspiration at this time but will have the surgical consultation scheduled with Dr. Aguirre. The possibility of excision of the cavi ty was discussed with the patient. The aspiration could be performed after surgical consultation if c linically advised. BI-RADS 4 - Suspicious findings Surgical consultation for possible excision of long-term fluid cavity in the left retroareolar region .
== END ==
LOC: RADUSWWP 09:35
PROVIDERS: ATTEND Surgery
DX: N63.20 Unspecified lump in the left breast, unspecified quadrant (principal); Z53.9 Procedure and treatment not carried out, unspecified reason

== ENCOUNTER → 2022-11-02 | Outpatient (CLI) | payer MEDICARE ==
--- NOTE | 2022-11-02 08:57 | USB ---
Reason for Exam: Follow-up at short interval from prior study. Patient History: 11/14/2020, US discontinued breast bx LT on the left side. Mother had breast cancer, age 55. Technique: Method: Whole Breast Handheld. Findings: The whole breast of the left breast, the axilla of the left breast and the retroareolar of the left breast were scanned. Complete right breast ultrasound including scanning of the subareolar region and axilla. Redemonstrated in the subareolar region is a complex cyst currently measuring up to 4.8 x 4.8 x 4.2 cm. This is in comparison to 3.9 cm, previously. At least 3 mural-based polypoid areas of soft tissue nodularity are present, largest measuring up to 1.2 cm versus 1.0 cm, previously. The patient is scheduled for evaluation by surgery. In conjunction to the patient's consultation, we recommend aspiration of the fluid portion and biopsy of a mural based soft tissue component. Overall Assessment: Suspicious, BI-RAD 4 Management: Aspiration of the left breast. Ultrasound Core Biopsy of the left breast. At least 3 mural-based polypoid soft tissue areas within an enlarging subareolar cyst. Both aspiration and tissue biopsy are recommended in conjunction with the patient scheduled surgical consultation. Results were given to the patient verbally at the time of exam. Electronically signed and approved by: Jailene Wilde M.D. Radiologist
== END | disposition home or self-care (01) ==
LOC: RADUSWWP 08:18
PROVIDERS: ATTEND Family Medicine
DX: N64.4 Mastodynia (principal); Z80.3 Family history of malignant neoplasm of breast

== ENCOUNTER 2024-12-31 18:59 | Emergency (ER) | payer MEDICARE ==
[2024-12-31 19:08] VITALS: BP 143/81; PULSE 93; RESP 18; TEMP 98.3
--- NOTE | 2024-12-31 19:13 | ED ---
General Adult HPI - General Chief complaint: Weakness Stated complaint: Weakness, nausea, vomiting Time Seen by Provider: 12/31/24 19:01 Source: EMS Mode of arrival: EMS - History of Present Illness Initial comments: Dictation was produced using [employer] dictation software. please excuse any grammatical, word or spelling errors. Chief Complaint: 59-year-old diabetic male presents with generalized weakness nausea vomiting History of Present Illness: Patient 59-year-old male he is insulin-dependent diabetic. Patient has diabetes and diabetes related chronic illnesses. States that he was feeling fine this morning. He went to go see his son having a drink when all of a sudden he started to feel nauseated. He had some nonbilious nonbloody bloody vomiting. States that he feels weak. States that EMS was called. Sugar has been well-controlled recently. Patient feels little bit better since being in the ER. Denies any pain complaints. No constitutional symptoms. The ROS documented in this emergency department record has been reviewed and confirmed by me. Those systems with pertinent positive or negative responses have been documented in the HPI. All other systems are other negative and/or noncontributory. - Related Data Home Medications Medication Instructions Recorded Confirmed Cetirizine HCl [Zyrtec] 10 mg PO HS PRN 11/25/17 11/14/20 Enalapril Maleate [Vasotec] 2.5 mg PO HS 11/25/17 11/14/20 INSULIN LISPRO (For Pump) [humaLOG 0.01 units SQ-PUMP CONTINUOUS 11/25/17 11/14/20 (For Pump)] Simvastatin [Zocor] 10 mg PO HS 11/25/17 11/14/20 Allergies Allergy/AdvReac Type Severity Reaction Status Date / Time No Known Allergies Allergy Verified 12/31/24 19:08 Review of Systems ROS Statement: Those systems with pertinent positive or pertinent negative responses have been documented in the HPI. ROS Other: All systems not noted in ROS Statement are negative. Past Medical History Past Medical History: Chest Pain / Angina, Diabetes Mellitus, GERD/Reflux Additional Past Medical History / Comment(s): insulin pump, back pain, past detatched retina lt eye, abdominal bloating and pain, frequent bowel movements, "blood lump in left breast" History of Any Multi-Drug Resistant Organisms: None Reported Past Surgical History: Orthopedic Surgery, Tonsillectomy Additional Past Surgical History / Comment(s): reattatchment of retina lt eye stated has a titanium clip. multiple laser sx rt eye. rt hand surgery Past Anesthesia/Blood Transfusion Reactions: Motion Sickness, Postoperative Nausea & Vomiting (PONV) Past Psychological History: No Psychological Hx Reported Smoking Status: Former smoker Past Alcohol Use History: Daily Past Drug Use History: None Reported - Past Family History Mother Family Medical History: Cancer Additional Family Medical History / Comment(s): breast cancer. Father Additional Family Medical History / Comment(s): alive at age 80 not sure what health problems he has General Exam - General Exam Comments Initial Comments: PHYSICAL EXAM: General Impression: Alert and oriented x3, not in acute distress HEENT: Normocephalic atraumatic, extra-ocular movements intact, pupils equal and reactive to light bilaterally, mucous membranes moist. Cardiovascular: Heart regular rate and rhythm Chest: Able to complete full sentences, no retractions, no tachypnea Abdomen: abdomen soft, non-tender, non-distended, no organomegaly Musculoskeletal: Pulses present and equal in all extremities, no peripheral edema Motor: no focal deficits noted Neurological: CN II-XII grossly intact, no focal motor or sensory deficits noted Skin: Intact with no visualized rashes Psych: Normal affect and mood Course Vital Signs 12/31/24 19:02 Temperature 98.3 F Pulse Rate 93 Respiratory 18 Rate Blood Pressure 143/81 O2 Sat by Pulse 98 Oximetry - Reevaluation(s) Reevaluation #1: 12/31/24 20:00 More history obtained from family at the bedside. States that he had passed out. Does not take any anticoagulation medications. No history of cardiac disease. EKG Findings - EKG Comments: EKG Findings:: My EKG interpretation: Ventricular rate 89, sinus rhythm,. 167, QRS 106, QTc 421. No MO prolongation, no QTC prolongation, no ST or T-wave changes noted. Overall, this EKG is unremarkable Medical Decision Making - Medical Decision Making Was pt. sent in by a medical professional or institution (, PA, TILE DITCHER, urgent care, hospital, or custodial...) When possible be specific @ -[No] Did you speak to anyone other than the patient for history (EMS, parent, family, police, friend...)? What history was obtained from this source @ -See above Did you review nursing and triage notes (agree or disagree)? Why? @ -[I reviewed and agree with nursing and triage notes] Were old charts reviewed (outside hosp., previous admission, EMS record, old EKG, old radiological studies, urgent care reports/EKG's, custodial records)? Report findings @ -[No old charts were reviewed] Differential Diagnosis (chest pain, altered mental status, abdominal pain women, abdominal pain men, vaginal bleeding, musculoskeletal, weakness, fever, dyspnea, syncope, headache, dizziness, GI bleed, back pain, seizure, CVA, palpatations, mental health)? @ -Differential Syncope: Valvular disease, hypertrophic cardiomyopathy, pulmonary embolism, tamponade, tachycardia, bradycardia, TN, hypovolemia, hemorrhage, dissection, anemia, intracranial hemorrhage, seizure, hypoglycemia, carbon monoxide poisoning, this is not meant to be an all-inclusive list. EKG interpreted by me (3pts min.). @ -See above X-rays interpreted by me (1pt min.). @ -[None done] CT interpreted by me (1pt min.). @ -[None done] U/S interpreted by me (1pt. min.). @ -[None done] What testing was considered but not performed or refused? (CT, X-rays, U/S, labs)? Why? @ -[None] What meds were considered but not given or refused? Why? @ -[None] Was smoking cessation discussed for >3mins.? @ -[No] Were there social determinants of health that impacted care today? How? (Homelessness, low income, unemployed, alcoholism, drug addiction, transportation, low edu. Level, literacy, decrease access to med. care, assisted, rehab)? @ -[No] Was there de-escalation of care discussed even if they declined (Discuss DNR or withdrawal of care, Hospice)? DNR status @ -[No] What co-morbidities impacted this encounter? (DM, HTN, Smoking, COPD, CAD, Cancer, CVA, ARF, Chemo, Hep., AIDS, mental health diagnosis, sleep apnea, m orbid obesity)? @ -[None] Was patient admitted / discharged? Hospital course, mention meds given and route, prescriptions, significant lab abnormalities, going to OR and other pertinent info. @ -59-year-old male presents to the emergency department syncopal episode. Patient is a diabetic insulin-dependent. Vital signs are stable. Patient no acute distress at the bedside. Did hit his head has an abrasion to his knee. He is however not complaining of any head issues. Does not take any anti coagulation medications. Laboratory evaluation obtained. Labs within acceptable limits except for sodium 128. No significant acidosis. Labs are otherwise unremarkable. Patient given IV fluids ambulatory at baseline. Patient notified of his low sodium. Told to increase some of his sodium intake. Advise follow-up with primary care doctor. Return precautions discussed. Patient has no cardiac history. Did you discuss the management of the patient with other professionals (professionals i.e. , PA, TILE DITCHER, lab, RT, psych nurse, health social work professor, senior patient account representative, teacher, humane officer, trimming caser)? Give summary @ -[No] Was critical care preformed (if so, how long)? @ -[No] Undiagnosed new problem with uncertain prognosis? @ -[No] Drug Therapy requiring intensive monitoring for toxicity (Heparin, Nitro, Insulin, Cardizem)? @ -[No] Were any procedures done? @ -[No] Diagnosis/symptom? Acute, or Chronic, or Acute on Chronic? Uncomplicated (without systemic symptoms) or Complicated (systemic symptoms)? @ -Syncope, no high risk features Side effects of treatment? @ -[No] Exacerbation, Progression, or Severe Exacerbation? @ -[No] Poses a threat to life or bodily function? How? (Chest pain, USA, TN, pneumonia, PE, COPD, DKA, ARF, appy, cholecystitis, CVA, Diverticulitis, Homicidal, S uicidal, threat to staff... and all critical care pts) @ -[No] - Lab Data Result diagrams: 12/31/24 19:24 12/31/24 19:24 Lab Results 12/31/24 12/31/24 Range/Units 19:24 19:24 WBC 12.54 H (4.50-10.00) 10*3/uL RBC 4.04 L (4.40-5.60) 10*6/uL Hgb 14.3 (13.0-17.0) g/dL Hct 39.3 L (39.6-50.0) % MCV 97.3 H (80.0-97.0) fL MCH 35.4 H (27.0-32.0) pg MCHC 36.4 (32.0-37.0) g/dL Plt Count 216 (140-440) 10*3/uL MPV 8.4 L (9.5-12.2) fL Immature Gran % (Auto) 0.4 % Neutrophils % 84.1 % Lymphocytes % 6.8 % Monocytes % 7.8 % Eosinophils % 0.5 % Basophils % 0.4 % Immature Gran # 0.05 H (0.00-0.04) 10*3/uL Neutrophils # 10.55 H (1.80-7.70) 10*3/uL Lymphocytes # 0.85 L (0.90-5.00) 10*3/uL Monocytes # 0.98 (0.20-1.00) 10*3/uL Eosinophils # 0.06 (0.04-0.35) 10*3/uL Basophils # 0.05 (0.00-0.10) 10*3/uL Sodium 128 L (137-145) mmol/L Potassium 4.4 (3.5-5.1) mmol/L Chloride 95 L (98-107) mmol/L Carbon Dioxide 20 L (22-30) mmol/L Anion Gap 13 mmol/L BUN 17 (9-20) mg/dL Creatinine 1.23 (0.66-1.25) mg/dL Est GFR (CKD-EPI)AfAm 74 (>60 ml/min/1.73 sqM) Est GFR (CKD-EPI)NonAf 64 (>60 ml/min/1.73 sqM) Glucose 113 H (74-99) mg/dL Calcium 9.3 (8.4-10.2) mg/dL Magnesium 1.8 (1.6-2.3) mg/dL Total Bilirubin 0.7 (0.2-1.3) mg/dL AST 37 (17-59) U/L ALT 17 (4-49) U/L Alkaline Phosphatase 53 (38-126) U/L Total Protein 7.1 (6.3-8.2) g/dL Albumin 4.2 (3.5-5.0) g/dL Disposition Clinical Impression: Syncope Disposition: HOME SELF-CARE Condition: Fair Instructions (If sedation given, give patient instructions): Hyponatremia (ED) Is patient prescribed a controlled substance at d/c from ED?: No Referrals: None,Stated [Primary Care Provider] - 1-2 days Time of Disposition: 20:30
[2024-12-31] MEDS: SODIUM CHLORIDE 0.9% 1,000 ML IV STA (19:20)
[2024-12-31 19:28] LABS: Basophils # (A) 0.05 10*3/uL (0.00-0.10); Basophils % (A) 0.4 %; Eosinophils # (A) 0.06 10*3/uL (0.04-0.35); Eosinophils % (A) 0.5 %; HCT 39.3 % (39.6-50.0); HGB 14.3 g/dL (13.0-17.0); Lymphocytes # (A) 0.85 10*3/uL (0.90-5.00); Lymphocytes % (A) 6.8 %; MCH 35.4 pg (27.0-32.0); MCHC 36.4 g/dL (32.0-37.0); MCV 97.3 fL (80.0-97.0); Monocytes # (A) 0.98 10*3/uL (0.20-1.00); Monocytes % (A) 7.8 %; Neutrophils # (A) 10.55 10*3/uL (1.80-7.70); Neutrophils % (A) 84.1 %; Platelet Count 216 10*3/uL (140-440); RBC 4.04 10*6/uL (4.40-5.60); RDW 12.1 % (11.5-14.5); WBC 12.54 10*3/uL (4.50-10.00)
[2024-12-31 19:39] LABS: ALT 17 U/L (4-49); AST 37 U/L (17-59); African American GFR (CKD) 74 (>60 ml/min/1.73 sqM); Albumin 4.2 g/dL (3.5-5.0); Alkaline Phosphatase 53 U/L (38-126); Anion Gap 13 mmol/L; Blood Urea Nitrogen 17 mg/dL (9-20); Calcium 9.3 mg/dL (8.4-10.2); Carbon Dioxide 20 mmol/L (22-30); Chloride 95 mmol/L (98-107); Glucose 113 mg/dL (74-99); Magnesium 1.8 mg/dL (1.6-2.3); Non-African American GFR(CKD) 64 (>60 ml/min/1.73 sqM); Potassium 4.4 mmol/L (3.5-5.1); Sodium 128 mmol/L (137-145); Total Protein 7.1 g/dL (6.3-8.2)
== END 2024-12-31 21:03 | disposition home or self-care (01) ==
LOC: EC 18:59
DX: R55 Syncope and collapse (principal); E11.9 Type 2 diabetes mellitus without complications; Z79.4 Long term (current) use of insulin; Z87.891 Personal history of nicotine dependence
CPT/HCPCS: 36415; 80053; 83735; 85025; 93005; 96360; 99285